=== PATIENT | male | born 1955 | race Caucasian/White ===

== ENCOUNTER → 2018-02-26 | Outpatient (CLI) | payer OTHER | LOC: M LRY 15:17 | DX: S39.92XA Unspecified injury of lower back, initial encounter (principal); X58.XXXA Exposure to other specified factors, initial encounter; Y92.89 Other specified places as the place of occurrence of the external cause; Y93.9 Activity, unspecified; Y99.9 Unspecified external cause status | CPT/HCPCS: 72070 ==

== ENCOUNTER 2018-07-07 17:07 | Emergency (ER) | payer OTHER ==
[~2018-07-07] VITALS: Ht 180.3 cm; Wt 95.5 kg
[2018-07-07 17:07] VITALS: BP 161/84
[2018-07-07] MEDS ORDERED: SIMV80TA13 PO (17:14)
[2018-07-07] MEDS ORDERED: PANT20TA2 PO (17:14)
[2018-07-07] MEDS ORDERED: CARV25TA PO (17:14)
[2018-07-07] MEDS ORDERED: COUM2TAB22 PO (17:14)
[2018-07-07] MEDS ORDERED: CILO50TA PO (17:14)
[2018-07-07] MEDS ORDERED: DILT240C14 PO (17:14)
[2018-07-07] MEDS ORDERED: VITA50005 PO (17:14)
[2018-07-07] MEDS ORDERED: CLOB-25 TOP (18:11)
[2018-07-07] MEDS ORDERED: CLOB0.0548 TOP (19:24)
== END 2018-07-07 18:17 | disposition home or self-care (01) ==
LOC: M ED 17:07
DX: L25.8 Unspecified contact dermatitis due to other agents (principal); I10 Essential (primary) hypertension; J44.9 Chronic obstructive pulmonary disease, unspecified; K21.9 Gastro-esophageal reflux disease without esophagitis; Z86.718 Personal history of other venous thrombosis and embolism; Z95.0 Presence of cardiac pacemaker; Z79.01 Long term (current) use of anticoagulants; Z79.899 Other long term (current) drug therapy

== ENCOUNTER 2018-09-16 10:45 | Emergency (ER) | payer OTHER ==
[~2018-09-16 10:45] MED LIST: CARV25TA PO; CILO50TA PO; CLOB-25 TOP; CLOB0.0548 TOP; COUM2TAB22 PO; DILT240C82 PO; PANT20TA2 PO; SIMV80TA13 PO; VITA50005 PO
[2018-09-16 11:40] LABS: BASO # 0.1 10^3/uL (0.0-0.2); EOS # 0.1 10^3/uL (0.0-0.50); HEMATOCRIT 38.7 % (42.0-52.0); HEMOGLOBIN 13.7 g/dl (13.5-17.5); LYMPH # 1.4 10^3/uL (1.5-4.5); LYMPH % 20.8 % (24.0-44.0); MEAN CORPUSCULAR HEMOGLOBIN 31.5 pg (27.0-33.0); MEAN CORPUSCULAR HGB CONC 35.4 g/dl (32.0-36.5); MONO # 0.7 10^3/uL (0.0-0.8); MONO % 9.9 % (0.0-5.0); NEUTROPHILS # 4.6 10^3/uL (1.8-7.7); PLATELET COUNT, AUTOMATED 131 10^3/uL (150-450); RED BLOOD COUNT 4.35 10^6/uL (4.30-6.10); WHITE BLOOD COUNT 6.9 10^3/uL (4.0-10.0)
[2018-09-16 11:53] LABS: INR 1.99; PARTIAL THROMBOPLASTIN TIME 36.8 SECONDS (25.4-37.6)
--- NOTE | 2018-09-16 12:09 | REP ---
CHEST, PORTABLE: AP portable view of the chest is performed and compared to a prior study 07/15/2015 as well as other prior exams. I see no acute infiltrate. There is blunting of the left costophrenic angle, which may represent a tiny pleural effusion. The heart is normal in size. There is mild calcification of the thoracic aorta. Mediastinal silhouette is unchanged. There is a left dual-lead pacemaker. IMPRESSION: Possible tiny left pleural effusion. Electronically Signed by Luis Britton MD 09/16/2018 01:34 P
[2018-09-16 12:16] LABS: ALBUMIN 3.4 GM/DL (3.2-5.2); ALT/SGPT 35 U/L (12-78); BILIRUBIN,DIRECT 0.2 MG/DL (0.0-0.2); BILIRUBIN,TOTAL 0.8 MG/DL (0.2-1.0); BLOOD UREA NITROGEN 10 MG/DL (7-18); CALCIUM LEVEL 8.5 MG/DL (8.8-10.2); CARBON DIOXIDE LEVEL 27 MEQ/L (21-32); CHLORIDE LEVEL 110 MEQ/L (98-107); CK-MB VALUE MASS < 1.0 NG/ML (<3.6); CPK CREATINE PHOSPHOKINASE 96 U/L (39-308); CREATININE FOR GFR 0.91 MG/DL (0.70-1.30); FREE T4 1.11 NG/DL (0.76-1.46); GLOMERULAR FILTRATION RATE > 60.0 (>49); GLUCOSE, FASTING 110 MG/DL (70-100); LIPASE 101 U/L (73-393); MB/CK RELATIVE INDEX 1.04 (< OR =4); NT-PRO BNP 20 PG/ML (<125); POTASSIUM SERUM 3.8 MEQ/L (3.5-5.1); SODIUM LEVEL 140 MEQ/L (136-145); THYROID STIMULATING HORMONE 0.288 uIU/ML (0.358-3.740); TOTAL PROTEIN 7.4 GM/DL (6.4-8.2); TROPONIN I < 0.02 NG/ML (< 0.10)
[2018-09-16] MEDS ORDERED: ISOVUE-370 76% 100ML VIAL (Q9967) As Ordered ONE (12:23)
[2018-09-16] MEDS ORDERED: AMMONIA AROMATIC INHALANT (FLOOR STOCK) As Ordered ONE (12:41)
--- NOTE | 2018-09-16 13:52 | REP ---
CT ANGIOGRAM CHEST: TECHNIQUE: Axial contrast enhanced images from the thoracic inlet to the upper abdomen using 100 mL Isovue 370 intravenous contrast material with multiplanar reformations. There is no CT evidence of pulmonary embolism. There is no thoracic aortic aneurysm or dissection. The heart is not enlarged. There is no mediastinal, hilar or chest wall lymphadenopathy. There is no pericardial effusion. There are tiny bilateral pleural effusions. There is fatty infiltration of the liver. No acute infiltrate is seen in either lung. There are mild scattered fibrotic changes. A small bulla is seen in the left posterior costophrenic sulcus. IMPRESSION: No CT evidence of pulmonary embolism or aortic dissection. Tiny bilateral pleural effusions. Electronically Signed by Luis Britton MD 09/17/2018 02:52 P
[2018-09-16 17:51] LABS: CPK CREATINE PHOSPHOKINASE 100 U/L (39-308); TROPONIN I < 0.02 NG/ML (< 0.10)
[2018-09-16 18:09] VITALS: BP 125/76
--- NOTE | 2018-09-16 19:41 | ECGEPIP ---
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
--- NOTE | 2018-09-16 19:55 | ECGEPIP ---
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
--- NOTE | 2018-09-19 15:12 | ED PDOC ---
Post-Departure Follow-Up [facility] [place] - faxed formal report of cxr for fu kwakug Sirena-Khadar Britton MD September 19, 2018 15:12
== END 2018-09-16 18:13 | disposition home or self-care (01) ==
LOC: M ED 10:45 → EDBD 10:45 → M ED 18:13
DX: R07.89 Other chest pain (principal); I48.91 Unspecified atrial fibrillation; I44.7 Left bundle-branch block, unspecified; R06.02 Shortness of breath; E78.5 Hyperlipidemia, unspecified; K21.9 Gastro-esophageal reflux disease without esophagitis; J44.9 Chronic obstructive pulmonary disease, unspecified; Z95.0 Presence of cardiac pacemaker; Z87.891 Personal history of nicotine dependence; Z79.899 Other long term (current) drug therapy; Z79.01 Long term (current) use of anticoagulants
CPT/HCPCS: 71045; 71275; 80048; 80076; 82550; 82553; 83690; 83880; 84439; 84443; 84484; 85025; 85610; 85730; 93005; 93041; 94760; 99285; Q9967

== ENCOUNTER 2022-03-13 15:24 | Inpatient (IN) | payer OTHER ==
[~2022-03-13] VITALS: Ht 182.9 cm; Wt 82.3 kg
[~2022-03-13 15:24] MED LIST changes: +ELIQ5TAB PO; -PANT20TA2 PO; +PANT20TA6 PO; +SPIR1CAP INH; +VENTAER INH
[2022-03-13] MEDS ORDERED: METO1TAB87 PO (15:38)
[2022-03-13] MEDS ORDERED: PACE200T PO (15:38)
[2022-03-13] MEDS ORDERED: ATOR80TA59 PO (15:38)
[2022-03-13 18:01] LABS: BASO # 0.1 10^3/uL (0.0-0.2); BASO % 0.7 % (0.0-1.0); EOS # 0.1 10^3/uL (0.0-0.5); EOS % 2.1 % (0.0-3.0); HEMATOCRIT 32.3 % (42.0-52.0); HEMOGLOBIN 10.4 g/dl (13.5-17.5); LYMPH # 1.4 10^3/uL (1.5-5.0); LYMPH % 20.8 % (24.0-44.0); MEAN CORPUSCULAR HGB CONC 32.2 g/dl (32.0-36.5); MEAN CORPUSCULAR VOLUME 96.1 fl (80.0-96.0); MONO # 0.8 10^3/uL (0.0-0.8); MONO % 11.2 % (2.0-8.0); NEUTROPHILS # 4.4 10^3/uL (1.5-8.5); NEUTROPHILS % 64.8 % (36.0-66.0); PLATELET COUNT, AUTOMATED 159 10^3/uL (150-450); RED BLOOD COUNT 3.36 10^6/uL (4.30-6.10); WHITE BLOOD COUNT 6.8 10^3/uL (4.0-10.0)
[2022-03-13 18:25] LABS: RSV AMPLIFICATION NEGATIVE (NEGATIVE)
[2022-03-13] MEDS ORDERED: PANT40TA29 PO (18:26)
[2022-03-13] MEDS ORDERED: SPIR12.9 INH (18:26)
[2022-03-13] MEDS ORDERED: ASPI81CH33 PO (18:28)
[2022-03-13] MEDS ORDERED: OMEG10002 PO (18:28)
[2022-03-13 18:34] LABS: ALBUMIN 2.8 GM/DL (3.2-5.2); ALT/SGPT 37 U/L (12-78); BILIRUBIN,DIRECT 0.2 MG/DL (0.0-0.2); BILIRUBIN,TOTAL 0.6 MG/DL (0.2-1.0); BLOOD UREA NITROGEN 10 MG/DL (7-18); CALCIUM LEVEL 8.6 MG/DL (8.8-10.2); CARBON DIOXIDE LEVEL 24 MEQ/L (21-32); CHLORIDE LEVEL 108 MEQ/L (98-107); CREATININE FOR GFR 0.76 MG/DL (0.70-1.30); GLOMERULAR FILTRATION RATE > 60.0 (>49); GLUCOSE, FASTING 101 MG/DL (70-100); MB/CK RELATIVE INDEX 1.2 (< OR =4); NT-PRO BNP 2522 PG/ML (<125); POTASSIUM SERUM 4.4 MEQ/L (3.5-5.1); SODIUM LEVEL 139 MEQ/L (136-145); TOTAL PROTEIN 6.8 GM/DL (6.4-8.2)
[2022-03-13] MEDS ORDERED: HOME MED LIST COMPLETE! XX SCH (18:40)
[2022-03-13] MEDS ORDERED: FUROSEMIDE 40MG/4ML VIAL (J1940) IV ONE (19:50)
[2022-03-13 20:44] VITALS: BP 156/79
[2022-03-13 20:59] VITALS: BP 156/85
[2022-03-13 21:44] VITALS: BP 160/80
[2022-03-13] MEDS ORDERED: ALBUTEROL 90 MCG/ACT 8GM HFA INHALER INH PRN (21:55)
[2022-03-13 22:31] VITALS: BP 150/73
[2022-03-13 22:52] VITALS: BP 143/82
[2022-03-13 23:02] VITALS: BP 143/82
[2022-03-13] MEDS: APIXABAN 5 MG TAB (ELIQUIS) PO SCH (23:02)
[2022-03-13] MEDS: METOPROLOL TART 25 MG TABLET PO SCH (23:02)
[2022-03-14 06:00] VITALS: BP 104/70
[2022-03-14 07:40] VITALS: BP 120/60
[2022-03-14 08:52] LABS: BASO # 0.1 10^3/uL (0.0-0.2); BASO % 0.8 % (0.0-1.0); EOS # 0.1 10^3/uL (0.0-0.5); EOS % 1.7 % (0.0-3.0); HEMATOCRIT 39.4 % (42.0-52.0); LYMPH # 1.3 10^3/uL (1.5-5.0); LYMPH % 17.6 % (24.0-44.0); MEAN CORPUSCULAR HEMOGLOBIN 29.7 pg (27.0-33.0); MEAN CORPUSCULAR HGB CONC 32.7 g/dl (32.0-36.5); MEAN CORPUSCULAR VOLUME 90.6 fl (80.0-96.0); MONO # 0.7 10^3/uL (0.0-0.8); MONO % 9.7 % (2.0-8.0); NEUTROPHILS % 69.6 % (36.0-66.0); PLATELET COUNT, AUTOMATED 184 10^3/uL (150-450); RED BLOOD COUNT 4.35 10^6/uL (4.30-6.10); WHITE BLOOD COUNT 7.2 10^3/uL (4.0-10.0)
[2022-03-14 08:53] LABS: HEMOGLOBIN 12.9 g/dl (13.5-17.5)
[2022-03-14] MEDS: METOPROLOL TART 25 MG TABLET PO SCH (08:56)
[2022-03-14] MEDS: APIXABAN 5 MG TAB (ELIQUIS) PO SCH (08:56)
[2022-03-14] MEDS ORDERED: ATORVASTATIN 20 MG TAB PO SCH (09:00)
[2022-03-14] MEDS ORDERED: AMIODARONE 200 MG TAB (PACERONE) PO SCH (09:00)
[2022-03-14] MEDS ORDERED: ASPIRIN 81 MG CHEW TABLET PO SCH (09:00)
[2022-03-14] MEDS ORDERED: PANTOPRAZOLE 40MG TAB (PROTONIX) PO SCH (09:00)
[2022-03-14] MEDS: TIOTROPIUM INHALER/CAPSULE (SPIRIVA) INH SCH ×2 (09:02→09:03)
[2022-03-14 09:44] LABS: ALBUMIN 3.3 GM/DL (3.2-5.2); ALT/SGPT 38 U/L (12-78); BILIRUBIN,TOTAL 1.1 MG/DL (0.2-1.0); BLOOD UREA NITROGEN 9 MG/DL (7-18); CARBON DIOXIDE LEVEL 26 MEQ/L (21-32); CHLORIDE LEVEL 104 MEQ/L (98-107); CREATININE FOR GFR 0.95 MG/DL (0.70-1.30); GLOMERULAR FILTRATION RATE > 60.0 (>49); GLUCOSE, FASTING 196 MG/DL (70-100); MAGNESIUM LEVEL 2.1 MG/DL (1.8-2.4); POTASSIUM SERUM 3.4 MEQ/L (3.5-5.1); SODIUM LEVEL 136 MEQ/L (136-145); TOTAL PROTEIN 7.5 GM/DL (6.4-8.2)
[2022-03-14] MEDS ORDERED: POTASSIUM CHLORIDE 10MEQ SR TABLET PO ONE (10:15)
[2022-03-14] MEDS ORDERED: FUROSEMIDE 20MG/2ML VIAL (J1940) IV ONE (10:25)
[2022-03-14] MEDS ORDERED: methylPREDNISolone 40MG 1ML VIAL IV ONE (10:25)
== END 2022-03-14 17:00 | disposition home or self-care (01) | DRG 811 ==
LOC: M ED 15:24 → M ED INP 21:21 → M MSPAV 22:51
PROVIDERS: ADMIT Family Medicine; ATTEND Family Medicine
PROC: 30233N1 Transfusion of Nonautologous Red Blood Cells into Peripheral Vein, Percutaneous Approach (ICD-10-PCS; principal; 2022-03-13)
DX: D64.9 Anemia, unspecified (principal); I21.4 Non-ST elevation (NSTEMI) myocardial infarction; J98.11 Atelectasis; J90 Pleural effusion, not elsewhere classified; I49.5 Sick sinus syndrome; I10 Essential (primary) hypertension; J44.9 Chronic obstructive pulmonary disease, unspecified; E78.5 Hyperlipidemia, unspecified; K21.9 Gastro-esophageal reflux disease without esophagitis; G47.33 Obstructive sleep apnea (adult) (pediatric); Z95.0 Presence of cardiac pacemaker; Z86.718 Personal history of other venous thrombosis and embolism; Z95.1 Presence of aortocoronary bypass graft; Z87.891 Personal history of nicotine dependence; Z79.01 Long term (current) use of anticoagulants; Z79.82 Long term (current) use of aspirin; Z79.899 Other long term (current) drug therapy

== ENCOUNTER 2022-12-07 12:32 | Emergency (ER) | payer OTHER ==
[~2022-12-07] VITALS: Ht 182.9 cm; Wt 99.4 kg
[~2022-12-07 12:32] MED LIST changes: +ASPI81CH33 PO; +ATOR80TA59 PO; -CILO50TA PO; +CILO50TA2 PO; +METO1TAB87 PO; +OMEG10002 PO; +PACE200T PO; +PANT40TA29 PO; +SPIR12.9 INH
[2022-12-07] MEDS ORDERED: ACETAMINOPHEN 325 MG TAB PO ONE (18:10)
[2022-12-07] MEDS ORDERED: diphenhydrAMINE 50MG/ML VIAL IV ONE (18:15)
[2022-12-07] MEDS ORDERED: ISOVUE-370 76% 100ML VIAL As Ordered ONE (19:18)
[2022-12-07 19:23] LABS: BASO # 0.1 10^3/uL (0.0-0.2); BASO % 0.9 % (0.0-1.0); EOS # 0.1 10^3/uL (0.0-0.5); EOS % 1.1 % (0.0-3.0); HEMATOCRIT 45.1 % (42.0-52.0); HEMOGLOBIN 15.3 g/dl (13.5-17.5); LYMPH # 2.5 10^3/uL (1.5-5.0); LYMPH % 24.1 % (24.0-44.0); MEAN CORPUSCULAR HEMOGLOBIN 30.5 pg (27.0-33.0); MEAN CORPUSCULAR HGB CONC 33.9 g/dl (32.0-36.5); MEAN CORPUSCULAR VOLUME 89.8 fl (80.0-96.0); MONO # 0.9 10^3/uL (0.0-0.8); MONO % 8.5 % (2.0-8.0); NEUTROPHILS # 6.7 10^3/uL (1.5-8.5); NEUTROPHILS % 64.9 % (36.0-66.0); PLATELET COUNT, AUTOMATED 170 10^3/uL (150-450); RED BLOOD COUNT 5.02 10^6/uL (4.30-6.10); WHITE BLOOD COUNT 10.3 10^3/uL (4.0-10.0)
[2022-12-07 19:47] LABS: ALBUMIN 3.9 G/DL (3.2-5.2); BILIRUBIN,DIRECT 0.4 MG/DL (<0.4); BILIRUBIN,TOTAL 1.1 MG/DL (0.3-1.2); TOTAL PROTEIN 7.9 G/DL (5.7-8.2)
[2022-12-07 19:55] VITALS: BP 141/67; TEMP 97.5; O2SAT 98
[2022-12-07] MEDS ORDERED: predniSONE 20 MG TAB PO ONE (22:15)
[2022-12-07] MEDS ORDERED: PRED20TA PO (22:16)
== END 2022-12-07 22:24 | disposition home or self-care (01) ==
LOC: M ED 12:32
DX: R19.7 Diarrhea, unspecified (principal); L50.9 Urticaria, unspecified; I11.9 Hypertensive heart disease without heart failure; I48.91 Unspecified atrial fibrillation; I50.20 Unspecified systolic (congestive) heart failure; I25.10 Atherosclerotic heart disease of native coronary artery without angina pectoris; I25.2 Old myocardial infarction; E78.5 Hyperlipidemia, unspecified; J44.9 Chronic obstructive pulmonary disease, unspecified; G47.30 Sleep apnea, unspecified; Z79.01 Long term (current) use of anticoagulants; Z79.51 Long term (current) use of inhaled steroids; Z79.899 Other long term (current) drug therapy; Z79.82 Long term (current) use of aspirin
CPT/HCPCS: 74177; 80047; 80076; 81001; 83690; 85025; 87486; 87581; 87633; 87798; 96374; 99284; J1200; J7512; Q9967

== ENCOUNTER → 2022-12-08 | Outpatient (REF) | payer OTHER ==
[~2022-12-08] MED LIST changes: +PRED20TA PO
== END ==
LOC: M LAB REF 13:29
PROVIDERS: ATTEND Physician Assistant Medical
DX: A04.0 Enteropathogenic Escherichia coli infection (principal)

== ENCOUNTER 2023-09-18 10:49 | Emergency (ER) | payer OTHER, MEDICARE, MEDICAID ==
[~2023-09-18] VITALS: Ht 182.9 cm; Wt 101.8 kg
[2023-09-18] MEDS ORDERED: CLOP75TA2 PO (11:20)
[2023-09-18] MEDS ORDERED: AMOX875T2 (11:20)
[2023-09-18] MEDS ORDERED: LISI20TA33 PO (11:20)
[2023-09-18] MEDS ORDERED: OXYC1TAB23 (11:20)
[2023-09-18] MEDS ORDERED: FERR325T3 PO (11:20)
[2023-09-18] MEDS ORDERED: COLA100C5 PO (11:20)
[2023-09-18 13:10] LABS: HEMATOCRIT 38.8 % (42.0-52.0); HEMOGLOBIN 13.4 g/dl (13.5-17.5); MEAN CORPUSCULAR HEMOGLOBIN 31.1 pg (27.0-33.0); MEAN CORPUSCULAR HGB CONC 34.5 g/dl (32.0-36.5); PLATELET COUNT, AUTOMATED 166 10^3/uL (150-450); RED BLOOD COUNT 4.31 10^6/uL (4.30-6.10); WHITE BLOOD COUNT 7.8 10^3/uL (4.0-10.0)
[2023-09-18 13:31] LABS: INR 1.26; PROTHROMBIN TIME 15.4 SECONDS (12.5-14.5)
[2023-09-18] MEDS ORDERED: THROMBIN 5,000 UNITS VIAL As Ordered ONE (13:35)
[2023-09-18] MEDS ORDERED: LIDOCAINE 2% W/ EPINEPHRINE 1.7 ML DENTAL INJ As Ordered ONE (13:36)
[2023-09-18 13:46] LABS: BLOOD UREA NITROGEN 14 MG/DL (9-23); CALCIUM LEVEL 8.8 MG/DL (8.3-10.6); CARBON DIOXIDE LEVEL 25 MMOL/L (20-31); CHLORIDE LEVEL 107 MMOL/L (98-107); CREATININE FOR GFR 0.89 MG/DL (0.70-1.30); GLOMERULAR FILTRATION RATE > 60.0 (>49); GLUCOSE, FASTING 109 MG/DL (74-106); POTASSIUM SERUM 4.6 MMOL/L (3.5-5.1); SODIUM LEVEL 139 MMOL/L (136-145)
[2023-09-18] MEDS ORDERED: SILVER NITRATE APPLICATOR (1 = QTY 10) TOP ONE (13:55)
[2023-09-18] MEDS: SILVER NITRATE APPLICATOR (1 = QTY 10) TOP ONE (13:59)
[2023-09-18 15:01] VITALS: BP 164/71
[2023-09-18 15:04] VITALS: TEMP 99.1; O2SAT 98
== END 2023-09-18 15:21 | disposition home or self-care (01) ==
LOC: M ED 10:49
DX: L76.22 Postprocedural hemorrhage of skin and subcutaneous tissue following other procedure (principal); I48.91 Unspecified atrial fibrillation; I25.2 Old myocardial infarction; I10 Essential (primary) hypertension; I44.7 Left bundle-branch block, unspecified; Z79.51 Long term (current) use of inhaled steroids; Z79.2 Long term (current) use of antibiotics; Z79.899 Other long term (current) drug therapy; Z79.52 Long term (current) use of systemic steroids

== ENCOUNTER 2024-12-13 09:51 | Day surgery (SDC) | payer OTHER, MEDICARE, MEDICAID ==
[~2024-12-13] VITALS: Ht 182.9 cm; Wt 90.8 kg
[~2024-12-13 09:51] MED LIST changes: +AMOX875T2; +CLOP75TA2 PO; +COLA100C5 PO; +ECOT81TA5 PO; +FERR325T3 PO; +LISI20TA33 PO; +OXYC1TAB23
[2024-12-13] MEDS ORDERED: LIDOCAINE 2% 100 MG/5 ML SDV (FOR ANES.) As Ordered ONE (10:58)
[2024-12-13 11:17] VITALS: BP 145/62; O2SAT 97
== END 2024-12-13 11:35 | disposition home or self-care (01) ==
LOC: M OPP 09:51
PROVIDERS: ATTEND Surgery
DX: Z12.11 Encounter for screening for malignant neoplasm of colon (principal); K57.30 Diverticulosis of large intestine without perforation or abscess without bleeding; K64.0 First degree hemorrhoids; I48.91 Unspecified atrial fibrillation; Z95.810 Presence of automatic (implantable) cardiac defibrillator; G47.30 Sleep apnea, unspecified; Z91.040 Latex allergy status; Z79.01 Long term (current) use of anticoagulants; Z79.82 Long term (current) use of aspirin; Z79.899 Other long term (current) drug therapy; J44.9 Chronic obstructive pulmonary disease, unspecified